=== PATIENT | male | born 1985 | race Caucasian/White ===

== ENCOUNTER 2021-03-25 10:00 | Emergency (ER) | payer SELFPAY ==
--- NOTE | 2021-03-25 10:21 | EDM.PDOC ---
ED HPI GENERAL MEDICAL PROBLEM - General Chief Complaint: ENT Problem Stated Complaint: DYSPHAGIA Time Seen by Provider: 03/25/21 10:13 Source of Information: Reports: Patient History Limitations: Reports: No Limitations - History of Present Illness INITIAL COMMENTS - FREE TEXT/NARRATIVE: 35-year-old male presents to the ED for evaluation of a sore throat that started on Friday morning upon awakening. This was March 23. Continues to have significant pain with swallowing right side impact worse today. Has not been already able to eat or drink much for the last 2 days. Aware of perhaps a low- grade fever. Pain primarily in the right side of his throat with swallowing. Associated mild productive cough of white phlegm. No known COVID-19 exposure. Unclear if he had his tonsils removed or not when he was a youngster. No nausea or vomiting or diarrhea. No chills. Onset: Sudden Onset Date: 03/23/21 (Awoke with a sore throat on Friday which has only worsened since that time.) Duration: Day(s):, Constant, Getting Worse Location: Reports: Neck (Sore throat primarily in the right side of the neck.) Quality: Reports: Ache, Burning, Sharp, Stabbing Severity: Moderate (Sharp and stabbing pain with swallowing. 8 out of 10.) Improves with: Reports: None Worsens with: Reports: Other (Trying to eat or swallow makes the pain much worse. Pain radiates up into his right ear.) Context: Denies: Activity, Exercise, Lifting, Sick Contact, Trauma, Other Associated Symptoms: Reports: Cough (Being up a little bit of white sputum.), cough w sputum, Fever/Chills, Loss of Appetite, Malaise. 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 (Motrin last dose last evening) Throat Pain Score (Numeric/FACES): 7 - Related Data Allergies Allergy/AdvReac Type Severity Reaction Status Date / Time No Known Allergies Allergy Verified 03/25/21 10:09 Home Meds: Home Meds Amoxicillin/Clavulanate K [Augmentin 875-125 MG] 1 tab PO BID #16 tab 03/25/21 [Rx] Ondansetron [Zofran] 4 mg BUCCAL Q6H PRN #6 tab 03/25/21 [Rx] oxyCODONE HCl/Acetaminophen [Percocet 5-325 mg Tablet] 1 - 2 each PO Q4H PRN #20 tablet 03/25/21 [Rx] Social & Family History - Tobacco Use Tobacco Use Status *Q: Current Every Day Tobacco User Tobacco Use Within Last Twelve Months: Cigarettes (10 to 15 cigarettes daily.) - Alcohol Use Alcohol Use History: Yes ED ROS ENT - Review of Systems Review Of Systems: See Below Constitutional: Reports: Fever, Malaise, Weakness, Fatigue, Decreased Appetite (To painful to eat and swallow.). Denies: Chills, Weight Loss HEENT: Reports: No Symptoms Respiratory: Reports: No Symptoms Cardiovascular: Reports: No Symptoms Endocrine: Reports: No Symptoms GI/Abdominal: Reports: No Symptoms : Reports: No Symptoms Musculoskeletal: Reports: No Symptoms Skin: Reports: No Symptoms Neurological: Reports: No Symptoms Psychiatric: Reports: No Symptoms Hematologic/Lymphatic: Reports: No Symptoms ED EXAM, ENT - Physical Exam Exam: See Below Exam Limited By: No Limitations General Appearance: Alert, WD/WN, No Apparent Distress, Other (Does feel just slightly warm to touch. Recorded temperature is 36.7. Heart rate 95 and sinus. Respiratory is 20 with O2 sats of 97% room air BP elevated 177 110.) Eye Exam: Bilateral Eye: Normal Inspection, PERRL Ears: Normal TMs Mouth/Throat: Pharyngeal Erythema (Diffuse pharyngeal erythema. Associated erythema and swelling of the right soft palate and uvula slightly.), Throat Swelling (Right peritonsillar tissue and soft palate.), Tonsillar Erythema. No: Tonsillar Exudates, Tonsillar Swelling, Trismus Head: Atraumatic, Normocephalic Neck: Normal Inspection, Supple, Non-Tender, Full Range of Motion, Other (Tenderness in the distribution of the right). No: Lymphadenopathy (L), Lymphadenopathy (R) Respiratory/Chest: No Respiratory Distress ( submandibular node but not palpable.), Lungs Clear, Normal Breath Sounds, No Accessory Muscle Use, Chest Non-Tender, Other (Lower lung blancas are) Cardiovascular: Normal Peripheral Pulses ( clear to auscultation.), Regular Rate, Rhythm, No Edema, No Gallop, No Murmur, No Rub GI/Abdominal: Normal Bowel Sounds, Soft, Non-Tender, No Organomegaly, No Abnormal Bruit, No Mass, Pelvis Stable Back: Normal Inspection, Full Range of Motion. No: CVA Tenderness (L), CVA Tenderness (R) Extremities: Normal Inspection, Normal Range of Motion, Non-Tender, No Pedal Nathan ma Neurological: Alert, Oriented, CN II-XII Intact, Normal Cognition Psychiatric: Normal Affect, Normal Mood Skin: Warm, Dry, Intact, Normal Color, No Rash Course - Vital Signs Last Recorded V/S: Last Vital Signs Temp 36.7 C 03/25/21 10:07 Pulse 95 03/25/21 10:07 Resp 20 03/25/21 10:07 BP 177/110 H 03/25/21 10:07 Pulse Ox 97 03/25/21 10:07 - Orders/Labs/Meds Orders: Active Orders 24 hr Category Date Time Status Dextrose 5%-0.9% NaCl [Dextrose 5%-Normal Saline] 1,000 Med 03/25/21 10:30 Active ml IV ASDIRECTED Ketorolac [Toradol] Med 03/25/21 10:30 Active 30 mg IVPUSH ONETIME Medication Orders Dextrose/Sodium Chloride (Dextrose 5%-Normal Saline) 1,000 mls @ 999 mls/hr IV ASDIRECTED TOMY Last Admin: 03/25/21 10:40 Dose: 999 mls/hr Documented by: GIANCARLO Ketorolac Tromethamine (Ketorolac 30 Mg/Ml Sdv) 30 mg IVPUSH ONETIME TOMY Last Admin: 03/25/21 10:41 Dose: 30 mg Documented by: GIANCARLO Labs: Laboratory Tests 03/25/21 03/25/21 03/25/21 Range/Units 10:10 10:10 10:40 WBC 13.97 H (4.23-9.07) K/mm3 RBC 5.03 (4.63-6.08) M/mm3 Hgb 15.9 (13.7-17.5) gm/dl Hct 45.3 (40.1-51.0) % MCV 90.1 (79.0-92.2) fl MCH 31.6 (25.7-32.2) pg MCHC 35.1 (32.2-35.5) g/dl RDW Std Deviation 40.9 (35.1-43.9) fL Plt Count 264 (163-337) K/mm3 MPV 10.4 (9.4-12.3) fl Neutrophils % (Manual) 62 H (40-60) % Band Neutrophils % 6 (0-10) % Lymphocytes % (Manual) 12 L (20-40) % Atypical Lymphs % 13 % Monocytes % (Manual) 6 (2-10) % Eosinophils % (Manual) 1 (0.8-7.0) % Basophils % (Manual) 0 L (0.2-1.2) Platelet Estimate Adequate Plt Morphology Comment Normal RBC Morph Comment Normal Sodium (136-145) mEq/L Potassium (3.5-5.1) mEq/L Chloride (98-107) mEq/L Carbon Dioxide (21-32) mEq/L Anion Gap (5-15) BUN (7-18) mg/dL Creatinine (0.7-1.3) mg/dL Est Cr Clr Drug Dosing mL/min Estimated GFR (MDRD) (>60) mL/min BUN/Creatinine Ratio (14-18) Glucose (70-99) mg/dL Calcium (8.5-10.1) mg/dL Total Bilirubin (0.2-1.0) mg/dL AST (15-37) U/L ALT (16-63) U/L Alkaline Phosphatase (46-116) U/L C-Reactive Protein (<1.0) mg/dL Total Protein (6.4-8.2) g/dl Albumin (3.4-5.0) g/dl Globulin gm/dL Albumin/Globulin Ratio (1-2) SARS-CoV-2 RNA ([facility]) Negative (NEGATIVE) Group A Strep (PCR) Not detected (NOT DETECT) 03/25/21 Range/Units 10:40 WBC (4.23-9.07) K/mm3 RBC (4.63-6.08) M/mm3 Hgb (13.7-17.5) gm/dl Hct (40.1-51.0) % MCV (79.0-92.2) fl MCH (25.7-32.2) pg MCHC (32.2-35.5) g/dl RDW Std Deviation (35.1-43.9) fL Plt Count (163-337) K/mm3 MPV (9.4-12.3) fl Neutrophils % (Manual) (40-60) % Band Neutrophils % (0-10) % Lymphocytes % (Manual) (20-40) % Atypical Lymphs % % Monocytes % (Manual) (2-10) % Eosinophils % (Manual) (0.8-7.0) % Basophils % (Manual) (0.2-1.2) Platelet Estimate Plt Morphology Comment RBC Morph Comment Sodium 136 (136-145) mEq/L Potassium 4.0 (3.5-5.1) mEq/L Chloride 98 (98-107) mEq/L Carbon Dioxide 24 (21-32) mEq/L Anion Gap 18.0 H (5-15) BUN 10 (7-18) mg/dL Creatinine 1.0 (0.7-1.3) mg/dL Est Cr Clr Drug Dosing 106.46 mL/min Estimated GFR (MDRD) > 60 (>60) mL/min BUN/Creatinine Ratio 10.0 L (14-18) Glucose 112 H (70-99) mg/dL Calcium 8.9 (8.5-10.1) mg/dL Total Bilirubin 1.0 (0.2-1.0) mg/dL AST 21 (15-37) U/L ALT 53 (16-63) U/L Alkaline Phosphatase 69 (46-116) U/L C-Reactive Protein 8.2 H* (<1.0) mg/dL Total Protein 8.1 (6.4-8.2) g/dl Albumin 4.1 (3.4-5.0) g/dl Globulin 4.0 gm/dL Albumin/Globulin Ratio 1.0 (1-2) SARS-CoV-2 RNA ([facility]) (NEGATIVE) Group A Strep (PCR) (NOT DETECT) Meds: Medications Generic Name Dose Route Start Last Admin Trade Name Freq PRN Reason Stop Dose Admin Dextrose/Sodium Chloride 1,000 mls @ 999 mls/hr 03/25/21 10:30 03/25/21 10:40 Dextrose 5%-Normal Saline IV 999 mls/hr ASDIRECTED TOMY Administration Ketorolac Tromethamine 30 mg 03/25/21 10:30 03/25/21 10:41 Ketorolac 30 Mg/Ml Sdv IVPUSH 30 mg ONETIME TOMY Administration Discontinued Medications Generic Name Dose Route Start Last Admin Trade Name Hiren PRN Reason Stop Dose Admin Hydromorphone HCl 1 mg 03/25/21 10:25 03/25/21 10:41 Hydromorphone 1 Mg/Ml Syringe IVPUSH 03/25/21 10:26 1 mg ONETIME ONE Administration Ceftriaxone Sodium 2 gm/ 100 mls @ 200 mls/hr 03/25/21 10:22 03/25/21 10:41 Sodium Chloride IV 03/25/21 10:51 200 mls/hr ONETIME ONE Administration Ondansetron HCl 4 mg 03/25/21 10:25 03/25/21 10:41 Ondansetron 4 Mg/2 Ml Sdv IVPUSH 03/25/21 10:26 4 mg ONETIME ONE Administration - Radiology Interpretation Free Text/Narrative:: 35-year-old male presents to the ED with a sore throat that is only progressive ly gotten worse over the last 48 hours. He woke with right sided sore throat 2 days ago and it is progressed in intensity and severity. Very difficult to swallow at this time. No known exposure to COVID-19. On examination diffuse erythema of the oropharynx and soft tissue swelling of the soft palate on the right side suggesting right peritonsillar inflammation. Clinically does not have a peritonsillar abscess at this time. Rapid strep and COVID-19 screen to be obtained. CBC and CMP and a CRP to be obtained. Plan we will give him D5 normal saline at open. Dilaudid 1 mg with Zofran 4 mg and Toradol 30 mg IV for pain relief. Antibiotic will be Rocephin 2 g IV. - Re-Assessments/Exams Free Text/Narrative Re-Assessment/Exam: 03/25/21 11:13 White count is mildly elevated at 13.97. Differential pending. Hemoglobin is 15.9 with hematocrit of 45.3. Platelet count is 264,000. 03/25/21 11:24 patient states his pain is much improved. I will give him some Gatorade to drink at this time. Awaiting confirmation of his labs percent particular the COVID-19. 03/25/21 11:29 Differential on the white count shows 62% neutrophils and 6% bands cells. Sodium 136 with a potassium of 4.0. Chloride is 98 with a bicarb of 24. Anion gap is mildly elevated 18.0. BUN is 10 with a creatinine of 1.0 and a GFR greater than 60. Glucose 112. Calcium 8.9. Liver function normal. C-reactive protein elevated at 8.2. COVID-19 screen is negative. Rapid strep is negative. 03/25/21 11:53 Patient is feeling better. He will be discharged to home. He w ill be placed on Augmentin 875/1 2 5 mg tablet twice daily for the next 8 days to clear up tonsillitis. He will use combination of Motrin 600 mg every 6 hours and Percocet 5/325 mg strength 1 or 2 every 4-6 hours for pain relief. To return if not markedly improved in 24 to 36 hours Departure - Departure Time of Disposition: 11:54 Disposition: Home, Self-Care 01 Condition: Fair Clinical Impression: Tonsillitis Acute tonsillitis Qualifiers: Pharyngitis/tonsillitis etiology: unspecified etiology Qualified Code(s): J03.90 - Acute tonsillitis, unspecified - Discharge Information *PRESCRIPTION DRUG MONITORING PROGRAM REVIEWED*: Not Applicable *COPY OF PRESCRIPTION DRUG MONITORING REPORT IN PATIENT TIA: Not Applicable Prescriptions: Amoxicillin/Clavulanate K [Augmentin 875-125 MG] 1 tab PO BID #16 tab oxyCODONE HCl/Acetaminophen [Percocet 5-325 mg Tablet] 1 - 2 each PO Q4H PRN #20 tablet PRN Reason: pain relief. Ondansetron [Zofran] 4 mg BUCCAL Q6H PRN #6 tab PRN Reason: nausea or vomiting Instructions: Tonsillitis, [id number] Referrals: PCP,None [Primary Care Provider] - Forms: ED Department Discharge Additional Instructions: Evaluation in the emergency room today in regards to sore throat that is progressively worsened over the last 48 hours since onset. Examination reveals marked inflammation of the right peritonsillar tissues and soft palate making it hard to swallow. Lab test revealed a bacterial infection although strep screen came back negative. COVID-19 screen also came back negative. You were treated with a liter of IV fluids to improve hydration while in the ED. Try and drink plenty of fluids as able for the next couple of days until the infection comes under control. You received first dose of antibiotic Rocephin 2 g while in the emergency room. This antibiotic will last close to 24 hours and start to work within the next 2 to 4 hours. You will need to take oral antibiotic Augmentin 875/1 2 5 mg tablet twice daily for the next 8 days. You should take your first tablet tonight before bedtime. Pain medication is Percocet 5/3 2 5 mg tablet 1 or 2 every 4-6 hours as needed for pain relief with Motrin 600 mg by mouth every 6 hours. If nauseated may use Zofran 4 mg under the tongue every 4-6 hours as needed for nausea relief. Return to medical care if not markedly improved in 36 to 48 hours time Sepsis Event Note (ED) - Evaluation Sepsis Screening Result: No Definite Risk - Focused Exam Vital Signs: Vital Signs Temp Pulse Resp BP Pulse Ox 03/25/21 10:07 36.7 C 95 20 177/110 H 97 - My Orders Last 24 Hours: My Active Orders 03/25/21 10:30 Dextrose 5%-0.9% NaCl [Dextrose 5%-Normal Saline] 1,000 ml IV ASDIRECTED Ketorolac [Toradol] 30 mg IVPUSH ONETIME - Assessment/Plan Last 24 Hours: My Active Orders 03/25/21 10:30 Dextrose 5%-0.9% NaCl [Dextrose 5%-Normal Saline] 1,000 ml IV ASDIRECTED Ketorolac [Toradol] 30 mg IVPUSH ONETIME
[2021-03-25] MEDS ORDERED: cefTRIAXone 2 GM in Sodium Chloride 0.9% 100 ML IV ONE (10:22)
[2021-03-25] MEDS ORDERED: HYDROmorphone 1 MG/ML Syringe IVPUSH ONE (10:25)
[2021-03-25] MEDS ORDERED: Ondansetron 4 MG/2 ML SDV IVPUSH ONE (10:25)
[2021-03-25] MEDS ORDERED: Ketorolac 30 MG/ML SDV IVPUSH SCH (10:30)
[2021-03-25] MEDS ORDERED: Dextrose 5%-0.9% NaCl 1,000 ML IV SCH (10:30)
== END 2021-03-25 12:20 | disposition home or self-care (01) ==
LOC: JD.ED 10:00
DX: J03.90 Acute tonsillitis, unspecified (principal); Z20.822 Contact with and (suspected) exposure to COVID-19; Z72.0 Tobacco use
CPT/HCPCS: 36415; 80053; 85007; 85027; 86140; 87635; 87651; 96365; 96375; 99283; J0696; J1170; J1885; J2405; J7042; 99284; U0002